=== PATIENT | female | born 1985 | race Caucasian/White ===

== ENCOUNTER → 2017-01-28 | Outpatient (CLI) | payer OTHER ==
--- NOTE | 2017-01-28 10:05 | RAD ---
Limited ultrasound of the left breast 01/28/2017 Clinical history: Possible lump felt in the upper quadrant of the left breast. Technique: A real-time ultrasound examination of the upper quadrant of the left breast was performed. Multiple images were obtained. Findings: Comparison is made to the patient's diagnostic mammogram performed earlier today. No solid or cystic mass is seen within the visualized portions of the left breast. Incidental noted is made of a 1.4 cm lymph node in the region of the axillary tail. This has a benign appearance. Impression: Essentially negative study.
--- NOTE | 2017-01-28 10:08 | RAD ---
DATE: 01/28/2017 EXAM: DIGITAL DIAGNOSTIC LT HISTORY: Left breast lump. COMPARISON: None. This study was interpreted with the benefit of Computerized Aided Detection (CAD). FINDINGS: Digital MLO and CC mammograms of the left breast were obtained. This is patient's first mammogram. The left breast parenchyma is composed of scattered fibroglandular densities which can obscure a lesion on mammography (breast density code B). No spiculated mass is seen. No malignant assignation or area of architectural distortion is noted. IMPRESSION: BI-RADS Category 1, negative. There is no mammographic evidence of malignancy in the left breast. BI-RADS CATEGORY: 1 NEGATIVE RECOMMENDED FOLLOW-UP: 12M 12 MONTH FOLLOW-UP Mammography is a sensitive method for finding small breast cancers, but it does not detect them all and is not a substitute for careful clinical examination. A negative mammogram does not negate a clinically suspicious finding and should not result in delay in biopsying a clinically suspicious abnormality. "Our facility is accredited by the [employer] Mammography Program."
== END | disposition home or self-care (01) ==
LOC: MAMMO 09:18
PROVIDERS: ATTEND Specialist
DX: N63 Unspecified lump in breast (principal)
CPT/HCPCS: 76641; G0206; 77065